=== PATIENT | male | born 1965 | race Caucasian/White ===

== ENCOUNTER 2016-12-04 14:47 | Emergency (ER) | payer OTHER ==
[~2016-12-04] VITALS: Ht 175.3 cm; Wt 90.5 kg
[~2016-12-04 14:47] MED LIST: ALBU1AER9 INH; HYDR-4313 PO; LITH600C PO; LTHSR/300 PO; MIRT30TA3 PO; OMEP40CA41 PO; POTA1080 PO; TRAZ300T PO
[2016-12-04 14:50] VITALS: TEMP 36.7; Ht 175.3 cm; Wt 90.5 kg
[2016-12-04] MEDS ORDERED: SODIUM CHLORIDE 0.9% 500ML 500 ML IV STA (15:02)
[2016-12-04] MEDS ORDERED: SODIUM CHLORIDE 0.9% 1000ML 1,000 ML IV STA (15:02)
[2016-12-04] MEDS ORDERED: SODIUM CHLORIDE 0.9% 1000ML 500 ML IV STA (15:02)
[2016-12-04 15:19] VITALS: O2SAT 96
--- NOTE | 2016-12-04 15:26 | EMERGENCY ROOM VISIT NOTE ---
History Report prepared by Priscilla: Robby Gonzalez Under the Supervision of: Dr. Jeyson Dowell M.D. First contact with patient: 15:00 Chief Complaint: SHORTNESS OF BREATH Stated Complaint: LIGHT HEADED, CHEST PAIN, SOB Nursing Triage Summary: Pt states last night at midnight and felt like someone stabbed me in the chest and I got dizzy spells and short of breath and I almost passed out. Told the nurse this am at the alf and did an EKG then. Pt states when he sat up he got pale and lightheaded. Pt denies chest pain at this time, numbness in left arm. History of Present Illness The patient is a 51 year old male who presents to the Emergency Room with complaints of left chest pain starting around midnight last night. The patient stood up when he had a sudden onset of sharp, stabbing pain in the left chest. He also had shakiness and lightheadedness. The patient laid down in a position and either passed out or fell asleep. This morning, he had a normal EKG. About an hour ago, he had another normal EKG but had an onset of severe headache, and lightheadedness. He became pale. He was referred to the Emergency Room for concerns about a stroke. He currently reports an aching pain in his left chest which radiates to the left shoulder. He has worsening pain with deep breathing and lifting his left arm. He also complains of left arm numbness starting around midnight last night. He has been coughing up mucous over the past few days. The patient notes a reduced fluid intake. He denies any history of myocardial infarction, blood clots, or recent surgeries. He denies fevers, congestion, or any other complaints. Source of History: patient Onset: midnight last night Position: chest (left) Symptom Intensity: achiness currently Quality: sharp, stabbing Modifying Factors (Worsening): breathing (deep) Associated Symptoms: + headache, + cough, + numbness (left arm), No fevers Review of Systems See HPI for pertinent positives & negatives. A total of 10 systems reviewed and were otherwise negative. Past Medical & Surgical Medical Problems: (1) Cellulitis (2) Corneal abrasion, left (3) Kidney stone Surgical Problems: (1) Hx of appendectomy Family History FH: HTN (hypertension) FH: SC (myocardial infarction) FH: cancer FH: diabetes mellitus FH: gallbladder disease Kidney stone Social History Smoking Status: Former Smoker Alcohol Use: none Drug Use: none Marital Status: Housing Status: other ([facility]) Occupation Status: unemployed, disabled Current/Historical Medications Scheduled [place] Carbonate ([place] Carbonate), 300 MG PO QAM [place] Carbonate ([place] Carbonate), 600 MG PO HS Mirtazapine (Remeron), 60 MG PO HS Risperidone (Risperidone), 1 MG PO BID Scheduled PRN Calcium Carbonate (Tums), 1 TAB PO BID PRN for Indigestion Hydrocortisone (Hydrocortisone), 1 APPLN TOP BID PRN for Affected Skin Folds Allergies Coded Allergies: Rofecoxib (Verified Adverse Reaction, Unknown, upset stomach, 12/04/16) Physical Exam Vital Signs Date Time Temp Pulse Resp B/P (MAP) Pulse Ox O2 Delivery O2 Flow Rate FiO2 12/04/16 18:41 88 20 145/93 98 12/04/16 17:48 81 16 161/91 98 Room Air 12/04/16 16:23 89 16 150/95 98 Room Air 12/04/16 16:02 144/115 12/04/16 15:29 75 149/84 94 Room Air 88 162/85 92 144/84 12/04/16 15:27 96 12/04/16 15:19 96 Room Air 12/04/16 14:50 96 12/04/16 14:50 36.7 98 16 171/78 97 Physical Exam GENERAL: Patient is in no acute distress. HEENT: No acute trauma, normocephalic atraumatic, mucous membranes moist, no nasal congestion, no scleral icterus. NECK: No stridor, no adenopathy, no meningismus, trachea is midline. CHEST: Tender left chest wall. LUNGS: Clear to auscultation bilaterally, no wheeze, no rhonchi, breath sounds equal. HEART: 2/6 systolic murmur, regular rate and rhythm. ABDOMEN: Soft, nontender, bowel sounds positive, no hernias, no peritonitis. EXTREMITIES: No cyanosis or edema, full range of motion of all the joints without pain or difficulty, no signs for acute trauma. NEUROLOGIC: Oriented x 3, no acute motor or sensory deficits, no focal weakness. No cerebellar dysfunction or pronator drift. No facial droop or speech slur. SKIN: No rash, no jaundice, no diaphoresis. Medical Decision & Procedures ER Provider Diagnostic Interpretation: Orthostatic vital signs showed increased heart rate consistent with dehydration , blood pressure remained adequate. X-ray results as stated below per interpretation by me and the radiologist: HISTORY:51 yearsMaleCHEST PAIN COMPARISON: 05/10/2014 TECHNIQUE: Upright AP view of the chest FINDINGS: Teresa mediastinal and hilar silhouettes are within normal limits. No pneumothorax, pleural effusion or focal airspace consolidation. No overt pulmonary edema. Bones are grossly intact. IMPRESSION: No acute cardiopulmonary process. The above report was generated using voice recognition software. It may contain grammatical, syntax or spelling errors. Electronically signed by: Keyon Mcdonnell M.D. 12/04/2016 3:40 PM Dictated Date/Time: 12/04/2016 3:[address] results as stated below per my review and radiologist interpretation: HEAD WITHOUT CONTRAST (CT) CLINICAL HISTORY: 51 years-old Male presenting with left arm numb. TECHNIQUE: Multidetector CT imaging of the head was performed without the use of intravenous contrast. COMPARISON: CT from 2008. CT DOSE: 537.48 mGy.cm FINDINGS: Brain parenchyma normal in appearance with preserved graves-white differentiation. Ventricular system and sulci normal in size. No mass effect or midline shift. No hemorrhage or acute territorial infarct. No hydrocephalus. No extra-axial fluid collection. Minimal opacification of ethmoid air cells. Slight concavity of the right frontal sinus likely posttraumatic. Mastoid air cells clear. Calvarium intact. IMPRESSION: No acute intracranial pathology. Electronically signed by: Horace Stewart M.D. 12/04/2016 4:48 PM Dictated Date/Time: 12/04/2016 4:[address] ANGIOGRAPHY OF THE CHEST, PULMONARY EMBOLUS PROTOCOL CLINICAL HISTORY: Lightheaded, chest pain and shortness of breath. COMPARISON STUDY: Chest radiograph May 10, 2014 and December 04, 2016. TECHNIQUE: Following IV administration of 94 mL of Optiray-320, helical axial images of the chest were obtained utilizing the pulmonary embolus protocol. Maximal intensity projections and sagittal and coronal reformats were viewed on an independent 3D workstation. IV contrast was administered without complication. CT DOSE: 425.84 mGy.cm FINDINGS: No pulmonary emboli are identified. There is no evidence of thoracic aortic dissection. The size of the heart is normal. There is no pericardial effusion. There is a probable small hiatal hernia. No enlarged axillary, mediastinal or hilar lymph nodes are present. Central airways are patent. There is no consolidation to suggest pneumonia. Multiple small subpleural nodules within the lower lungs are unchanged since abdominal CT of January 03, 2009. The remainder of the subpleural pulmonary nodules are likely benign as well. There is fatty infiltration of the liver. IMPRESSION: 1. No probably emboli identified. 2. No acute intrathoracic findings. 3. Fatty liver. Electronically signed by: Keith Nelson M.D. 12/04/2016 6:11 PM Dictated Date/Time: 12/04/2016 6:02 PM Laboratory Results 12/04/16 15:22 12/04/16 15:22 Test 12/04/16 15:22 Red Blood Count 5.14 M/uL (4.7-6.1) Mean Corpuscular Volume 86.2 fL (80-100) Mean Corpuscular Hemoglobin 29.4 pg (25-34) Mean Corpuscular Hemoglobin Concent 34.1 g/dl (32-36) RDW Standard Deviation 39.0 fL (36.4-46.3) RDW Coefficient of Variation 12.2 % (11.5-14.5) Mean Platelet Volume 9.8 fL (7.4-10.4) Prothrombin Time 10.5 SECONDS (9.0-12.0) Prothromb Time International Ratio 1.0 (0.9-1.1) Activated Partial Thromboplast Time 26.6 SECONDS (21.0-31.0) Partial Thromboplastin Ratio 1.0 D-Dimer 530 ug/L FEU (0-500) Anion Gap 9.0 mmol/L (3-11) Est Creatinine Clear Calc Drug Dose 81.9 ml/min Estimated GFR () 81.2 Estimated GFR (Non- 70.1 BUN/Creatinine Ratio 11.3 (10-20) Calcium Level 9.1 mg/dl (8.5-10.1) Total Bilirubin 0.6 mg/dl (0.2-1) Aspartate Amino Transf (AST/SGOT) 29 U/L (15-37) Alanine Aminotransferase (ALT/SGPT) 60 U/L (12-78) Alkaline Phosphatase 71 U/L (45-117) Troponin I < 0.015 ng/ml (0-0.045) Total Protein 7.2 gm/dl (6.4-8.2) Albumin 4.0 gm/dl (3.4-5.0) Globulin 3.2 gm/dl (2.5-4.0) Albumin/Globulin Ratio 1.3 (0.9-2) [place] Level 0.7 mMOL/L (0.6-1.2) Laboratory results reviewed by me. Medications Administered Medications (Trade) Dose Ordered Sig/Dimitris Route Start Time Stop Time Status Last Admin Dose Admin Sodium Chloride 500 ml @ 999 mls/hr Q31M STAT IV 12/04/16 15:02 12/04/16 15:32 DC 12/04/16 15:32 999 MLS/HR Sodium Chloride 500 ml @ 999 mls/hr Q31M STAT IV 12/04/16 15:02 12/04/16 15:32 DC 12/04/16 15:32 999 MLS/HR Sodium Chloride 1,000 ml @ 200 mls/hr Q5H STAT IV 12/04/16 15:02 12/04/16 20:01 12/04/16 15:02 200 MLS/HR ECG Indication: chest pain Rate (beats per minute): 88 Rhythm: normal sinus Findings: no acute ischemic change, no ectopy ED Course 1500: The patient was evaluated in room B02. A complete history and physical exam was performed. 1502: Sodium Chloride 1000 ml @ 200 mls/hr IV, Sodium Chloride 500 ml @ 999 mls/ hr IV, Sodium Chloride 500 ml @ 999 mls/hr IV 1817: I updated the patient. .1825: Reevaluated the patient. Discussed results and discharge instructions: He verbalized understanding and agreement. The patient is ready for discharge. Medical Decision Differential diagnosis includes but is not limited to musculoskeletal pain, dehydration, PE, aortic dissection, SC, stroke, nerve impingement, anemia, infection. There is no leukocytosis or concerning anemia. No significant electrolyte abnormality, kidney failure or hepatitis. [place] level is not toxic. Brain CT shows no acute bleed or mass effect. On exam, there were no focal neurologic deficits. EKG shows a sinus rhythm, no acute ischemia. Cardiac enzyme testing 1 is not consistent with acute cardiac injury. Chest x-ray did not show pneumonia, mediastinal widening or pneumothorax. D-dimer testing was positive. Chest CT shows no PE, no evidence for aortic dissection. Orthostatic vital signs were positive in that his heart rate increased with standing. The patient received IV saline for dehydration. He has done well here in the emergency room. He is not toxic, he is not febrile. I think the chest pain is musculoskeletal. The near syncope or lightheadedness earlier was likely secondary to dehydration. I find no evidence for PE, for stroke or for SC. The patient was reassured and discharged [facility] to the [facility]. Impression Primary Impression: Left sided chest pain Additional Impression: Dehydration Scribe Attestation The scribe's documentation has been prepared under my direction and personally reviewed by me in its entirety. I confirm that the note above accurately reflects all work, treatment, procedures, and medical decision making performed by me. Departure Information Dispostion Home / Self-Care Referrals No Doctor, Assigned (PCP) Forms HOME CARE DOCUMENTATION FORM, IMPORTANT VISIT INFORMATION Patient Instructions My [facility] Additional Instructions heat to the chest wall may help motrin or tylenol for pain stay well hydrated--you were slightly dehydrated today no findings of stroke, heart attack or lung blood clot today. No findings of pneumonia return for worsening symptoms Problem Qualifiers
--- NOTE | 2016-12-04 15:41 | DIAGNOSTIC IMAGING REPORT ---
... HISTORY:51 yearsMaleCHEST PAIN COMPARISON: 05/10/2014 TECHNIQUE: Upright AP view of the chest FINDINGS: Teresa mediastinal and hilar silhouettes are within normal limits. No pneumothorax, pleural effusion or focal airspace consolidation. No overt pulmonary edema. Bones are grossly intact. IMPRESSION: No acute cardiopulmonary process. The above report was generated using voice recognition software. It may contain grammatical, syntax or spelling errors. Electronically signed by: Keyon Mcdonnell M.D. 12/04/2016 3:40 PM Dictated Date/Time: 12/04/2016 3:39 PM
[2016-12-04 15:51] LABS: HEMATOCRIT 44.3 % (42-52); MEAN CELL VOLUME 86.2 fL (80-100); MEAN CORPUSCULAR HEMOGLOBIN 29.4 pg (25-34); MEAN CORPUSCULAR HGB CONC 34.1 g/dl (32-36); MEAN PLATELET VOLUME 9.8 fL (7.4-10.4); PLATELET COUNT 233 K/uL (130-400); RED BLOOD COUNT 5.14 M/uL (4.7-6.1); WHITE BLOOD COUNT 8.51 K/uL (4.8-10.8)
[2016-12-04] MEDS ORDERED: CALC500C3 PO (16:05)
[2016-12-04] MEDS ORDERED: RSP1 PO (16:05)
[2016-12-04] MEDS ORDERED: HYDCR25 TOP (16:05)
[2016-12-04 16:12] LABS: BLOOD UREA NITROGEN 14 mg/dl (7-18); GLUCOSE 105 mg/dl (70-99)
[2016-12-04 16:13] LABS: ALT/SGPT 60 U/L (12-78); AST/SGOT 29 U/L (15-37); BUN/CREATININE RATIO 11.3 (10-20); CALCIUM 9.1 mg/dl (8.5-10.1); CARBON DIOXIDE 24 mmol/L (21-32); CHLORIDE 108 mmol/L (98-107); POTASSIUM 3.7 mmol/L (3.5-5.1); SODIUM 141 mmol/L (136-145)
[2016-12-04 16:17] LABS: ALB/GLOB RATIO 1.3 (0.9-2); ALKALINE PHOSPHATASE 71 U/L (45-117)
[2016-12-04 16:27] LABS: PROTHROMBIN TIME (PATIENT) 10.5 SECONDS (9.0-12.0)
--- NOTE | 2016-12-04 16:50 | DIAGNOSTIC IMAGING REPORT ---
HEAD WITHOUT CONTRAST (CT) CLINICAL HISTORY: 51 years-old Male presenting with left arm numb. TECHNIQUE: Multidetector CT imaging of the head was performed without the use of intravenous contrast. COMPARISON: CT from 2009. CT DOSE: 537.48 mGy.cm FINDINGS: Brain parenchyma normal in appearance with preserved graves-white differentiation. Ventricular system and sulci normal in size. No mass effect or midline shift. No hemorrhage or acute territorial infarct. No hydrocephalus. No extra-axial fluid collection. Minimal opacification of ethmoid air cells. Slight concavity of the right frontal sinus likely posttraumatic. Mastoid air cells clear. Calvarium intact. IMPRESSION: No acute intracranial pathology. Electronically signed by: Horace Stewart M.D. 12/04/2016 4:48 PM Dictated Date/Time: 12/04/2016 4:45 PM
[2016-12-04] MEDS ORDERED: OPTIRAY 320 IV PRN (17:30)
--- NOTE | 2016-12-04 18:13 | DIAGNOSTIC IMAGING REPORT ---
CT ANGIOGRAPHY OF THE CHEST, PULMONARY EMBOLUS PROTOCOL CLINICAL HISTORY: Lightheaded, chest pain and shortness of breath. COMPARISON STUDY: Chest radiograph May 10, 2014 and December 04, 2016. TECHNIQUE: Following IV administration of 94 mL of Optiray-320, helical axial images of the chest were obtained utilizing the pulmonary embolus protocol. Maximal intensity projections and sagittal and coronal reformats were viewed on an independent 3D workstation. IV contrast was administered without complication. CT DOSE: 425.84 mGy.cm FINDINGS: No pulmonary emboli are identified. There is no evidence of thoracic aortic dissection. The size of the heart is normal. There is no pericardial effusion. There is a probable small hiatal hernia. No enlarged axillary, mediastinal or hilar lymph nodes are present. Central airways are patent. There is no consolidation to suggest pneumonia. Multiple small subpleural nodules within the lower lungs are unchanged since abdominal CT of January 03, 2009. The remainder of the subpleural pulmonary nodules are likely benign as well. There is fatty infiltration of the liver. IMPRESSION: 1. No probably emboli identified. 2. No acute intrathoracic findings. 3. Fatty liver. Electronically signed by: Keith Nelson M.D. 12/04/2016 6:11 PM Dictated Date/Time: 12/04/2016 6:02 PM
[2016-12-04 18:41] VITALS: BP 145/93; PULSE 88; O2SAT 98
== END 2016-12-04 18:42 | disposition home or self-care (01) ==
LOC: C.EDB 14:49
DX: R07.9 Chest pain, unspecified (principal); E86.0 Dehydration; Z87.442 Personal history of urinary calculi; Z82.49 Family history of ischemic heart disease and other diseases of the circulatory system; Z80.9 Family history of malignant neoplasm, unspecified; Z83.3 Family history of diabetes mellitus; Z83.79 Family history of other diseases of the digestive system; Z84.1 Family history of disorders of kidney and ureter; Z87.891 Personal history of nicotine dependence; Z79.899 Other long term (current) drug therapy

== ENCOUNTER 2020-01-22 19:01 | Observation (INO) ==
[2020-01-22] MEDS ORDERED: ONDANSETRON INJ 2 MG/ML 2 ML VIAL IV STA (19:24)
[2020-01-22] MEDS ORDERED: MoRPHine SULFATE 4 MG/ML 1 ML CARP\\VIAL IV STA (19:24)
--- NOTE | 2020-01-22 19:33 | Emergency Department Note ---
History of Present Illness General Chief complaint: Chest Pain Stated complaint: chest pain/ [facility] Time Seen by Provider: 01/22/20 19:11 Source: patient History of Present Illness Provider complaint: Chest pain Onset (ago): hour(s) (Noon today) Location: chest and left Radiation: abdomen (Left upper abdomen at times) Severity: moderate Pain Consistency: + constant Quality: + sharp and + other (Someone sitting on his chest) Relieved By: + medication (2 sublingual nitroglycerin) Associated symptoms: + diaphoresis and + shortness of breath; no cough, no fever/chills, no headaches and no nausea/vomiting This is a 54-year-old male from [facility] who presents with chest pain starting at noon today. He states he got out of bed and developed left-sided chest pain which occasionally radiates into his left upper abdomen. He describes it as a sharp pain and also as if someone is sitting on his chest. He was given 2 sublingual nitroglycerin and aspirin prior to arrival and he states that this helped but did not resolve his pain. It is associated with shortness of breath and sweating. He does complain of abdominal distention and discomfort but states that this is a chronic problem for him and that his symptoms are not new. He did have some diarrhea but denies any vomiting. He denies any fever or cough or cold symptoms or known exposure to COVID-19. He denies any history of coronary artery disease. He does state that his family members have had heart attacks at a late age. He denies any history of PE or DVT and denies any recent immobilization. He denies any leg swelling or pain. Home Medications Home Medications Medication Instructions Recorded Confirmed Type lithium carbonate 300 mg PO DAILY 01/22/20 01/22/20 History lithium carbonate 600 mg PO HS 01/22/20 01/22/20 History mirtazapine 30 mg PO HS 01/22/20 01/22/20 History omeprazole 20 mg PO BID 01/22/20 01/22/20 History risperidone [Risperdal] 2 mg PO HS 01/22/20 01/22/20 History Allergies Allergy/AdvReac Type Severity Reaction Status Date / Time rofecoxib AdvReac Unknown upset Verified 12/04/16 16:00 stomach Past Med/Surg History Medical History (Updated 01/22/20 @ 21:39 by Dorothea Gómez DO) Bipolar 1 disorder Depression History of small bowel obstruction Surgical History (Updated 01/22/20 @ 21:27 by Dorothea Gómez DO) Hx of appendectomy Family History (Updated 01/22/20 @ 21:28 by Dorothea Gómez DO) Other Diabetes Heart disease Social History (Updated 01/22/20 @ 21:28 by Dorothea Gómez DO) Smoking Status: Never smoker Hx Alcohol Use: No Hx Substance Use: No Preferred Language: Mongolian Communication Ability: Effective Office Administrator Required: No Beliefs That Will Affect Care: None Current Living Situation: Other Current Living Situation Comment: Assisted current occupation: Incarcerated Feels Safe at Home: Yes Review of Systems See HPI for pertinent positives & negatives. and A total of 10 systems reviewed and were otherwise negative Physical Exam Vital Signs Vital Signs - 24 hr 01/22/20 19:17 01/22/20 19:30 01/22/20 20:00 Temperature 37.8 C H Temperature Source Oral Pulse Rate 105 H 101 H Pulse Rate from SpO2 Sensor 106 H 101 H Pulse Rhythm Regular Pulse Strength Normal Respiratory Rate 18 24 23 Respiratory Effort / Characteristics Non-Labored Spontaneous Respiratory Depth Normal Respiratory Pattern Regular Blood Pressure 142/78 H 140/81 134/71 Blood Pressure Mean 99 91 84 Blood Pressure Position Lying Pulse Oximetry 99 95 96 Oxygen Delivery Method Room Air Room Air Room Air Sepsis Recent Fever Within 48 Hours No Sepsis New/Unexplained Change in Mental Status No Sepsis Action Taken by Nursing No Action Required 01/22/20 20:29 01/22/20 21:00 Temperature Temperature Source Pulse Rate 104 H 102 H Pulse Rate from SpO2 Sensor 106 H 100 H Pulse Rhythm Pulse Strength Respiratory Rate 22 17 Respiratory Effort / Characteristics Respiratory Depth Respiratory Pattern Blood Pressure 140/85 156/101 H Blood Pressure Mean 101 117 Blood Pressure Position Pulse Oximetry 97 96 Oxygen Delivery Method Room Air Room Air Sepsis Recent Fever Within 48 Hours Sepsis New/Unexplained Change in Mental Status Sepsis Action Taken by Nursing Constitutional: Vital signs reviewed. Eyes: Pupils are equal round reactive to light. Conjunctiva are noninjected. ENT: Pharynx is clear without erythema or exudate. Mucous membranes are moist. Neck supple without meningeal signs. Respiratory: Clear to auscultation bilaterally. Breath sounds are equal bilaterally. Cardiovascular: Tachycardic. Heart rate 112. No rubs or gallops. GI: Diffusely distended abdomen without tenderness. Bowel sounds are present. Musculoskeletal: No peripheral edema. No lower extremity tenderness. Integumentary: No cyanosis. or jaundice. Neurological: The patient is awake and alert. No focal deficits. Psychiatric: Normal affect. Not anxious appearing. Course Administered Medications Heparin Sodium/Dextrose (Heparin Sodium/Dextrose) 25,000 units in 500 mls @ 28 mls/hr IV .[id number] [facility]; Protocol Stop: 02/21/20 21:59 Last Admin: 01/22/20 22:54 Dose: 1,400 units/hr, 28 mls/hr Documented by: [id number] Cosigned by: [id number] Tramadol HCl (Tramadol Hcl 50 Mg Tablet) 50 mg PO Q4H PRN PRN Reason: Pain Stop: 02/21/20 21:59 Last Admin: 01/22/20 22:52 Dose: 50 mg Documented by: [id number] Discontinued Medications Heparin Sodium/Dextrose (Heparin Iv Standard With Bolus) 1 ea IV NOW STA; Protocol Stop: 01/22/20 22:01 Last Admin: 01/22/20 22:55 Dose: 1 ea Documented by: [id number] Heparin Sodium (Porcine) 6,000 (units/ Syringe) 6 mls @ 10 mls/min IV NOW ONE Stop: 01/22/20 22:46 Last Admin: 01/22/20 22:54 Dose: 10 mls/min Documented by: [id number] Cosigned by: [id number] Ioversol (Optiray 320 125ml) 94 ml IV ONCE ONE Stop: 01/22/20 20:26 Last Admin: 01/22/20 20:25 Dose: 94 ml Documented by: [id number] Morphine Sulfate (Morphine Sulfate 4 Mg/Ml 1 Ml Carp\Vial) 4 mg IV NOW STA Stop: 01/22/20 19:25 Last Admin: 01/22/20 19:46 Dose: 4 mg Documented by: [id number] Ondansetron HCl (Ondansetron Inj 2 Mg/Ml 2 Ml Vial) 4 mg IV NOW STA Stop: 01/22/20 19:25 Last Admin: 01/22/20 19:46 Dose: 4 mg Documented by: [id number] Critical Care Time Critical Care Time: Yes Total Critical Care Time: 40 I have personally spent approximately 40 minutes of critical care time in the direct management of this patient. This includes bedside care, interpretation of diagnostic studies, and testing, discussion with consultants, patient, and family members, and other required patient management activities. These minutes are in excess of all separately billable procedures. Medical Decision Making Differential Diagnosis Unstable angina, PA, GERD, bowel obstruction, gastritis, pulmonary embolism Medical Records Attestation: I reviewed the patient's medical records. I did perform a limited focused review of portions of the patient's old chart on the electronic medical record. The patient has had no recent pertinent visits to this hospital. Home Medications Current Medication List: was personally reviewed by me Laboratory Data Attestation: I reviewed the patient's lab results. Result diagrams: 01/22/20 19:10 01/22/20 19:10 Lab Results 01/22/20 01/22/20 01/22/20 Range/Units 19:10 19:10 19:10 WBC 12.00 H (4.8-10.8) K/uL RBC 5.06 (4.7-6.1) M/uL Hgb 15.2 (14.0-18.0) g/dL Hct 45.6 (42-52) % MCV 90.1 (80-100) fL MCH 30.0 (25-34) pg MCHC 33.3 (32-36) g/dL RDW Std Deviation 41.4 (36.4-46.3) fL RDW Coeff of James 12.6 (11.5-14.5) % Plt Count 245 (130-400) K/uL MPV 10.6 H (7.4-10.4) fL Immature Gran % (Auto) 0.2 % Neut % (Auto) 69.5 % Lymph % (Auto) 17.1 % Sargent % (Auto) 11.3 % Eos % (Auto) 1.6 % Baso % (Auto) 0.3 % Neut # (Auto) 8.36 H (1.4-6.5) K/uL Lymph # (Auto) 2.05 (1.2-3.4) K/uL Sargent # (Auto) 1.35 H (0.11-0.59) K/uL Eos # (Auto) 0.19 (0-0.5) K/uL Baso # (Auto) 0.03 (0-0.2) K/uL Immature Gran # (Auto) 0.02 (0.00-0.02) K/uL PT (9.0-12.0) Seconds INR (0.9-1.1) APTT (21.0-31.0) Seconds PTT Ratio D-Dimer Cancelled Sodium 137 (136-145) mmol/L Potassium 4.0 (3.5-5.1) mmol/L Chloride 108 H (98-107) mmol/L Carbon Dioxide 22 (21-32) mmol/L Anion Gap 8.0 (3-11) BUN 13 (7-18) mg/dl Creatinine 1.30 (0.6-1.4) mg/dl Est Cr Clr Drug Dosing 76.0 ml/min Est GFR ( Amer) 72.2 Est GFR (Non-Af Amer) 62.3 BUN/Creatinine Ratio 9.7 L (10-20) Glucose 108 H (70-99) mg/dl Calcium 8.9 (8.5-10.1) mg/dl Total Bilirubin 0.8 (0.2-1) mg/dl AST 28 (15-37) U/L ALT 50 (12-78) U/L Alkaline Phosphatase 84 (45-117) U/L Troponin I < 0.015 (0-0.045) ng/ml Total Protein 8.1 (6.4-8.2) gm/dl Albumin 4.2 (3.4-5.0) gm/dl Globulin 3.9 (2.5-4.0) gm/dl Albumin/Globulin Ratio 1.1 (0.9-2) Lipase 94 (73-393) U/L 01/22/20 Range/Units 19:10 WBC (4.8-10.8) K/uL RBC (4.7-6.1) M/uL Hgb (14.0-18.0) g/dL Hct (42-52) % MCV (80-100) fL MCH (25-34) pg MCHC (32-36) g/dL RDW Std Deviation (36.4-46.3) fL RDW Coeff of James (11.5-14.5) % Plt Count (130-400) K/uL MPV (7.4-10.4) fL Immature Gran % (Auto) % Neut % (Auto) % Lymph % (Auto) % Sargent % (Auto) % Eos % (Auto) % Baso % (Auto) % Neut # (Auto) (1.4-6.5) K/uL Lymph # (Auto) (1.2-3.4) K/uL Sargent # (Auto) (0.11-0.59) K/uL Eos # (Auto) (0-0.5) K/uL Baso # (Auto) (0-0.2) K/uL Immature Gran # (Auto) (0.00-0.02) K/uL PT 10.7 (9.0-12.0) Seconds INR 1.0 (0.9-1.1) APTT 26.0 (21.0-31.0) Seconds PTT Ratio 0.9 D-Dimer 1130 H* Sodium (136-145) mmol/L Potassium (3.5-5.1) mmol/L Chloride (98-107) mmol/L Carbon Dioxide (21-32) mmol/L Anion Gap (3-11) BUN (7-18) mg/dl Creatinine (0.6-1.4) mg/dl Est Cr Clr Drug Dosing ml/min Est GFR ( Amer) Est GFR (Non-Af Amer) BUN/Creatinine Ratio (10-20) Glucose (70-99) mg/dl Calcium (8.5-10.1) mg/dl Total Bilirubin (0.2-1) mg/dl AST (15-37) U/L ALT (12-78) U/L Alkaline Phosphatase (45-117) U/L Troponin I (0-0.045) ng/ml Total Protein (6.4-8.2) gm/dl Albumin (3.4-5.0) gm/dl Globulin (2.5-4.0) gm/dl Albumin/Globulin Ratio (0.9-2) Lipase (73-393) U/L Imaging Data Radiologist's Impression: AP CHEST WITH ABDOMINAL SERIES CLINICAL HISTORY: Abdominal distention. FINDINGS: An AP upright chest radiograph is compared to chest x-ray and chest CT dated 12/04/2016. The examination is degraded by patient rotation. The cardiomediastinal silhouette is unremarkable. There are low lung volumes with bibasilar atelectasis. Chronic interstitial thickening is similar to previous. No airspace consolidation or pleural effusion is identified. No pneumothorax is seen. The bony thorax is grossly intact. Supine and erect abdominal radiographs are compared to study dated 10/04/2011 and correlated with abdominal CT dated 04/13/2011. There is a nonobstructed abdominal bowel gas pattern. Fecal retention is noted in the right colon. No evidence of intraperitoneal free air is seen. There are no abnormal abdominal calcifications. Small phleboliths are observed in the pelvis. The lumbosacral spine and bony pelvis appear intact. IMPRESSION: 1. No active disease in the chest. 2. Nonobstructed abdominal bowel gas pattern. ACT 112: Negative or not required by law. Electronically signed by: Jeyson Hammer M.D. 01/22/2020 7:[address] ANGIOGRAM OF THE CHEST CLINICAL HISTORY: Atypical left-sided chest pain. COMPARISON STUDY: Chest x-ray dated 01/22/2020. Chest CT dated 12/04/2016. TECHNIQUE: Following the IV administration of 94 cc of Optiray 320, CT angiogram of the chest was performed from the upper abdomen to the thoracic inlet utilizing the pulmonary embolus protocol. Images are reviewed in the axial, sagittal, and coronal planes. 3-D MIPS images are created and assessed. IV contrast was administered without complication. A dose lowering technique was utilized adhering to the principles of ALARA. The examination is degraded by suboptimal contrast opacification of the pulmonary arteries CT DOSE: 507.02 mGy.cm FINDINGS: Thyroid: Imaged portions of the thyroid gland are normal in size and attenuation. Thoracic aorta: The thoracic aorta is normal in caliber and demonstrates standar d 3-vessel arch anatomy. No dissection is seen. Pulmonary vasculature: The pulmonary trunk is normal in caliber. There are no filling defects identified in main, lobar, or segmental pulmonary branches to suggest pulmonary embolus. A filling defect is suggested within a subsegmental branch of the left lower lobe pulmonary artery on image #92. Heart: The heart is normal in size and without pericardial effusion. Lungs and pleural spaces: Evaluation of the lung parenchyma is degraded by motion artifact. There is trace left pleural effusion. There is a small focus of subpleural consolidation identified in the anterior left lower lobe on image #76. The trachea and central airways are clear. A 3 mm pulmonary nodule in the lingula seen on image #108. There are least 3 small pulmonary pleural-based nodules in the right middle lobe measuring up to 3 mm seen on image #81, #84, and #105. These are unchanged dating back to 2017 and of doubtful significance. Scattered calcified granulomas are observed. Mediastinum: There is no mediastinal lymphadenopathy. Peace: Clear. Axillae: There is no axillary lymphadenopathy. Upper abdomen: There is a small hiatal hernia. The liver is steatotic. Skeletal structures: No lytic or blastic bony lesions are seen. IMPRESSION: 1. The examination is degraded by suboptimal contrast opacification of the pulmonary arteries. 2. There is no evidence of central pulmonary embolus within the main, lobar, or proximal segmental pulmonary arteries. 3. A subsegmental pulmonary embolus is suspected within a branch of the left lower lobe pulmonary artery. This leads to a small focus of subpleural consolidation which likely represents a tiny pulmonary infarct. 4. There is trace left pleural effusion. 5. Hepatic steatosis. 6. Additional findings as above. ACT 112: Negative or not required by law. Electronically signed by: Jeyson Hammer M.D. 01/22/2020 8:39 PM Dictated: 01/22/202027 Transcribed: 01/22/202027 ECG Data Attestation: I personally reviewed and interpreted this ECG as follows: Indication: + chest pain Rate (beats per minute): 122 Rhythm: + sinus tachycardia ECG Intervals/blocks: + Normal QRS ECG ST segments: no ST elevation ECG Findings: no PVCs Blood Pressure Blood Pressure Findings: Elevated blood pressure Blood Pressure Disposition: Referred to patients primary care provider [facility] Narrative I did evaluate the patient as noted above. The patient is presenting with chest pain. He is quite tachycardic here. He also has a low-grade temperature. I was concerned about pulmonary embolism. I did treat him with IV morphine and Zofran. I did place an order for continuous cardiac monitoring. The monitor showed sinus tachycardia with a rate of 112. I did order and personally review the patient's 12-lead EKG as described above. He has sinus tachycardia without evidence of acute ischemia. I did order and personally reviewed the images of the patient's chest/abdominal x-ray as described above. There is no evidence of obstruction or pneumonia. I did order and review the patient's blood work as noted in the electronic medical record. His white blood cell count is elevated. His d-dimer is 1130. Troponin is negative. After discussion with the patient, I did order a CT angiogram of the chest. I did review the images myself as well as the radiology report as described above. He does have a left- sided pulmonary embolism with a small pulmonary infarct. I did discuss risks and benefits of blood thinners with patient. He was agreeable to treatment. His tachycardia did improve. I did discuss case with the hospitalist and watch caser. I did order a heparin IV drip with bolus. Impression & Plan Embolism, pulmonary with infarction Discharge Plan Visit Data Chief Complaint: Chest Pain Stated Complaint: chest pain/ [facility] ED Provider: Karri Roberts Discharge Problem: Embolism, pulmonary with infarction Patient Disposition: Admitted As Inpatient Discharge Instructions Interventions: ED Discharge Assessment Last Done: 01/22/20 21:32
[2020-01-22 19:44] LABS: Basophils # (auto) 0.03 K/uL (0-0.2); Basophils % (auto) 0.3 %; Eosinophils # (auto) 0.19 K/uL (0-0.5); Eosinophils % (auto) 1.6 %; Hematocrit (blood only) 45.6 % (42-52); Hemoglobin 15.2 g/dL (14.0-18.0); Immature Granulocytes # (auto) 0.02 K/uL (0.00-0.02); Immature Granulocytes % (auto) 0.2 %; Lymphocytes # (auto) 2.05 K/uL (1.2-3.4); Lymphocytes % (auto) 17.1 %; Mean Corpuscular Hgb Conc 33.3 g/dL (32-36); Mean Corpuscular Volume 90.1 fL (80-100); Mean Platelet Volume 10.6 fL (7.4-10.4); Monocytes # (auto) 1.35 K/uL (0.11-0.59); Monocytes % (auto) 11.3 %; Neutrophils # (auto) 8.36 K/uL (1.4-6.5); Neutrophils % (auto) 69.5 %; Platelet Count 245 K/uL (130-400); RDW Coefficient of Variation 12.6 % (11.5-14.5); RDW Standard Deviation 41.4 fL (36.4-46.3); Red Blood Count 5.06 M/uL (4.7-6.1)
--- NOTE | 2020-01-22 19:50 | XRay Report ---
AP CHEST WITH ABDOMINAL SERIES CLINICAL HISTORY: Abdominal distention. FINDINGS: An AP upright chest radiograph is compared to chest x-ray and chest CT dated 12/04/2016. The examinati on is degraded by patient rotation. The cardiomediastinal silhouette is unremarkable. There are low l bailey volumes with bibasilar atelectasis. Chronic interstitial thickening is similar to previous. No ai rspace consolidation or pleural effusion is identified. No pneumothorax is seen. The bony thorax is g rossly intact. Supine and erect abdominal radiographs are compared to study dated 10/04/2011 and correlated with abdo patricia CT dated 04/13/2011. There is a nonobstructed abdominal bowel gas pattern. Fecal retention is n oted in the right colon. No evidence of intraperitoneal free air is seen. There are no abnormal abdom inal calcifications. Small phleboliths are observed in the pelvis. The lumbosacral spine and bony pel vis appear intact. IMPRESSION: 1. No active disease in the chest. 2. Nonobstructed abdominal bowel gas pattern. ACT 112: Negative or not required by law. Electronically signed by: Jeyson Hammer M.D. 01/22/2020 7:49 PM
[2020-01-22 19:55] LABS: Partial Thromboplastin Ratio 0.9; Prothrombin Time 10.7 Seconds (9.0-12.0)
[2020-01-22 20:03] LABS: Alanine Aminotransferase 50 U/L (12-78); Albumin Level 4.2 gm/dl (3.4-5.0); Aspartate Aminotransferase 28 U/L (15-37); BUN Creatinine Ratio 9.7 (10-20); Blood Urea Nitrogen 13 mg/dl (7-18); Calcium 8.9 mg/dl (8.5-10.1); Carbon Dioxide 22 mmol/L (21-32); Chloride 108 mmol/L (98-107); Est GFR (African American) 72.2; Est GFR (Non-African American) 62.3; Glucose 108 mg/dl (70-99); Lipase 94 U/L (73-393); Sodium 137 mmol/L (136-145)
[2020-01-22 20:04] LABS: D Dimer 1130 ug/L FEU (0-500)
[2020-01-22 20:08] LABS: Albumin Globulin Ratio 1.1 (0.9-2); Alkaline Phosphatase 84 U/L (45-117); Bilirubin,Total 0.8 mg/dl (0.2-1); Globulin 3.9 gm/dl (2.5-4.0); Total Protein 8.1 gm/dl (6.4-8.2); Troponin I < 0.015 ng/ml (0-0.045)
[2020-01-22] MEDS ORDERED: OPTIRAY 320 125ml IV ONE (20:25)
--- NOTE | 2020-01-22 20:40 | CT Scan Report ---
CT ANGIOGRAM OF THE CHEST CLINICAL HISTORY: Atypical left-sided chest pain. COMPARISON STUDY: Chest x-ray dated 01/22/2020. Chest CT dated 12/04/2016. TECHNIQUE: Following the IV administration of 94 cc of Optiray 320, CT angiogram of the chest was per formed from the upper abdomen to the thoracic inlet utilizing the pulmonary embolus protocol. Images are reviewed in the axial, sagittal, and coronal planes. 3-D MIPS images are created and assessed. IV contrast was administered without complication. A dose lowering technique was utilized adhering to the principles of ALARA. The examination is degraded by suboptimal contrast opacification of the pulm onary arteries CT DOSE: 507.02 mGy.cm FINDINGS: Thyroid: Imaged portions of the thyroid gland are normal in size and attenuation. Thoracic aorta: The thoracic aorta is normal in caliber and demonstrates standard 3-vessel arch anato my. No dissection is seen. Pulmonary vasculature: The pulmonary trunk is normal in caliber. There are no filling defects identif ied in main, lobar, or segmental pulmonary branches to suggest pulmonary embolus. A filling defect is suggested within a subsegmental branch of the left lower lobe pulmonary artery on image #92. Heart: The heart is normal in size and without pericardial effusion. Lungs and pleural spaces: Evaluation of the lung parenchyma is degraded by motion artifact. There is trace left pleural effusion. There is a small focus of subpleural consolidation identified in the ant erior left lower lobe on image #76. The trachea and central airways are clear. A 3 mm pulmonary nodul e in the lingula seen on image #108. There are least 3 small pulmonary pleural-based nodules in the r ight middle lobe measuring up to 3 mm seen on image #81, #84, and #105. These are unchanged dating ba to 2016 and of doubtful significance. Scattered calcified granulomas are observed. Mediastinum: There is no mediastinal lymphadenopathy. Peace: Clear. Axillae: There is no axillary lymphadenopathy. Upper abdomen: There is a small hiatal hernia. The liver is steatotic. Skeletal structures: No lytic or blastic bony lesions are seen. IMPRESSION: 1. The examination is degraded by suboptimal contrast opacification of the pulmonary arteries. 2. There is no evidence of central pulmonary embolus within the main, lobar, or proximal segmental pu lmonary arteries. 3. A subsegmental pulmonary embolus is suspected within a branch of the left lower lobe pulmonary art milton. This leads to a small focus of subpleural consolidation which likely represents a tiny pulmonary infarct. 4. There is trace left pleural effusion. 5. Hepatic steatosis. 6. Additional findings as above. ACT 112: Negative or not required by law. Electronically signed by: Jeyson Hammer M.D. 01/22/2020 8:39 PM
--- NOTE | 2020-01-22 21:41 | History & Physical Report ---
Date of Service January 22, 2020 Assessment & Plan (1) Embolism, pulmonary with infarction: 54yo C male with history of Bipolar/Depression presenting from [facility] with acute onset of left sided pleuritic chest pain. Found to have a subsegmental PE of left lower lobe pulmonary artery with associated small pulmonary infarct. No clear risk factors identified. Patient currently afebrile, regular tachycardia at 104bpm, blood pressure is stable. No respiratory distress, adequate oxygenation on room air. -Admit to medical floor with telemetry monitoring -Heparin bolus + gtt for anticoagulation -Initiate NOAC tomorrow - anticoagulation for at least 3 months in unprovoked PE -Patient should complete age appropriate cancer screenings to include colonoscopy -Tramadol as needed for pain Present on Admission?: Yes (2) Bipolar 1 disorder: Stable mood and affect. Normal speech. -Continue home medication regimen to include [place] 300mg po daily and 600mg po qHS -Remeron 30mg po qHS -Risperidone 2mg po qHS Present on Admission?: Yes (3) Depression: As above -Continue home Psychiatric medications Present on Admission?: Yes (4) Constipation: Patient reports some abdominal bloating and distention as well as constipation. He has history of prior abdominal surgery with SBO. Chest/Abd X- ray with nonobstructed abdominal bowel gas pattern. -Miralax and colace PRN F/E/N - Heplock. Electrolytes WNL. Regular diet as tolerated. Ppx - Heparin gtt as above. Continue home Omeprazole 20mg po BID Code - Full per discussion with patient Dispo - Observation to medical floor with telemetry. Anticipate discharge tomorrow Present on Admission?: Yes History of Present Illness Chief Complaint: left sided chest pain Primary Care Provider: [facility] Alvaro Brock is a 54yo male inmate from [facility] with history of Bipolar/D epression presenting with left sided chest pain. Patient states that he was getting ready for work this afternoon around 12:00 when he had acute onset of left sided chest pain. Pain stabbing and squeezing in nature, radiation down his left side and associated with sweating. Pain is pleuritic, non-exertional and non-positional. Patient with no complaint of leg swelling but he did have some mild discomfort in his legs earlier. No trauma/immobililty. No prior history of VTE but he thinks some of his family members have had blood clots in the past. He has never had a colonoscopy before. He is also complaining of abdominal bloating and distention as well as constipation. No additional complaints at this time, specifically denies fever/chills/cough/abdominal pain/nausea/vomiting/diarrhea. No concerns for exposure to COVID-19. On arrival to the ER he was found to have slightly elevated body temperature at 37.8, regular tachycardia at 105bpm, no respiratory distress, adequate oxyge [place] on room air. Laboratory workup revealed neutrophil predominant mild leukocytosis with WBC=12 and elevated D-dimer at 1130. CTA revealed subsegmental PE in the left lower lobe pulmonary infarct with small pulmonary infarct. ER Course: Morphine 4mg IV, Zofran 4mg IV Allergies Allergy/AdvReac Type Severity Reaction Status Date / Time rofecoxib AdvReac Unknown upset Verified 12/04/16 16:00 stomach Home Medications Home Medications Medication Instructions Recorded Confirmed Type lithium carbonate 300 mg PO DAILY 01/22/20 01/22/20 History lithium carbonate 600 mg PO HS 01/22/20 01/22/20 History mirtazapine 30 mg PO HS 01/22/20 01/22/20 History omeprazole 20 mg PO BID 01/22/20 01/22/20 History risperidone [Risperdal] 2 mg PO HS 01/22/20 01/22/20 History Past Med/Surg History Medical History (Updated 01/22/20 @ 21:39 by Dorothea Gómez DO) Bipolar 1 disorder Depression History of small bowel obstruction Surgical History (Updated 01/22/20 @ 21:27 by Dorothea Gómez DO) Hx of appendectomy Family History (Updated 01/22/20 @ 21:28 by Dorothea Gómez DO) Other Diabetes Heart disease Social History (Updated 01/22/20 @ 21:28 by Dorothea Gómez DO) Smoking Status: Former smoker Hx Alcohol Use: No Hx Substance Use: No Preferred Language: Lithuanian Current Living Situation: Other current occupation: Incarcerated Feels Safe at Home: Yes Review of Systems Review of Systems: All systems reviewed & are unremarkable except as noted in HPI & below Physical Exam Physical Exam: General: patient resting comfortably, NAD, non-toxic in appearance, AA&O x 4 Skin: warm, dry, intact, no rashes or lesions, small abrasion on LLE HEENT: NC/AT, PERRL, EOMI, anicteric sclera, conjunctiva without injection, external ear normal to inspection and nontender, nares patent, moist mucus membranes, dentition intact, no oropharyngeal lesions, neck supple, trachea midline, no LAD, no thyromegaly, no JVD Heart: +S1/S2, regular, tachycardic, no m/r/g Lungs: equal air entry bilaterally, no rales/rhonchi/wheezes, discomfort elicited with deep breathing Abd: +BS hypoactive, soft, NT, mildly distended and tympanic to percussion, no masses/organomegaly/ascites Ext: warm, 2+ pulses in UE/LE bilaterally, no clubbing/cyanosis or edema Neuro: nonfocal, patient AA&O x 4, speech intact, no facial droop, moving all extremities on command with equal strength 5/5 Results & Data Results & Data ([facility]) Vital Signs (Past 12 Hours) Vital Signs Temp Pulse Resp BP Pulse Ox 01/22/20 20:29 104 H 22 140/85 97 01/22/20 20:00 101 H 23 134/71 96 01/22/20 19:30 105 H 24 140/81 95 01/22/20 19:17 37.8 C H 18 142/78 H 99 Laboratory Results Lab Results 01/22/20 01/22/20 01/22/20 Range/Units 19:10 19:10 19:10 WBC 12.00 H (4.8-10.8) K/uL RBC 5.06 (4.7-6.1) M/uL Hgb 15.2 (14.0-18.0) g/dL Hct 45.6 (42-52) % MCV 90.1 (80-100) fL MCH 30.0 (25-34) pg MCHC 33.3 (32-36) g/dL RDW Std Deviation 41.4 (36.4-46.3) fL RDW Coeff of James 12.6 (11.5-14.5) % Plt Count 245 (130-400) K/uL MPV 10.6 H (7.4-10.4) fL Immature Gran % (Auto) 0.2 % Neut % (Auto) 69.5 % Lymph % (Auto) 17.1 % [place] % (Auto) 11.3 % Eos % (Auto) 1.6 % Baso % (Auto) 0.3 % Neut # (Auto) 8.36 H (1.4-6.5) K/uL Lymph # (Auto) 2.05 (1.2-3.4) K/uL [place] # (Auto) 1.35 H (0.11-0.59) K/uL Eos # (Auto) 0.19 (0-0.5) K/uL Baso # (Auto) 0.03 (0-0.2) K/uL Immature Gran # (Auto) 0.02 (0.00-0.02) K/uL PT (9.0-12.0) Seconds INR (0.9-1.1) APTT (21.0-31.0) Seconds PTT Ratio D-Dimer Cancelled Sodium 137 (136-145) mmol/L Potassium 4.0 (3.5-5.1) mmol/L Chloride 108 H (98-107) mmol/L Carbon Dioxide 22 (21-32) mmol/L Anion Gap 8.0 (3-11) BUN 13 (7-18) mg/dl Creatinine 1.30 (0.6-1.4) mg/dl Est Cr Clr Drug Dosing 76.0 ml/min Est GFR ( Amer) 72.2 Est GFR (Non-Af Amer) 62.3 BUN/Creatinine Ratio 9.7 L (10-20) Glucose 108 H (70-99) mg/dl Calcium 8.9 (8.5-10.1) mg/dl Total Bilirubin 0.8 (0.2-1) mg/dl AST 28 (15-37) U/L ALT 50 (12-78) U/L Alkaline Phosphatase 84 (45-117) U/L Troponin I < 0.015 (0-0.045) ng/ml Total Protein 8.1 (6.4-8.2) gm/dl Albumin 4.2 (3.4-5.0) gm/dl Globulin 3.9 (2.5-4.0) gm/dl Albumin/Globulin Ratio 1.1 (0.9-2) Lipase 94 (73-393) U/L // Range/Units 19:10 WBC (4.8-10.8) K/uL RBC (4.7-6.1) M/uL Hgb (14.0-18.0) g/dL Hct (42-52) % MCV (80-100) fL MCH (25-34) pg MCHC (32-36) g/dL RDW Std Deviation (36.4-46.3) fL RDW Coeff of James (11.5-14.5) % Plt Count (130-400) K/uL MPV (7.4-10.4) fL Immature Gran % (Auto) % Neut % (Auto) % Lymph % (Auto) % [place] % (Auto) % Eos % (Auto) % Baso % (Auto) % Neut # (Auto) (1.4-6.5) K/uL Lymph # (Auto) (1.2-3.4) K/uL [place] # (Auto) (0.11-0.59) K/uL Eos # (Auto) (0-0.5) K/uL Baso # (Auto) (0-0.2) K/uL Immature Gran # (Auto) (0.00-0.02) K/uL PT 10.7 (9.0-12.0) Seconds INR 1.0 (0.9-1.1) APTT 26.0 (21.0-31.0) Seconds PTT Ratio 0.9 D-Dimer 1130 H* Sodium (136-145) mmol/L Potassium (3.5-5.1) mmol/L Chloride (98-107) mmol/L Carbon Dioxide (21-32) mmol/L Anion Gap (3-11) BUN (7-18) mg/dl Creatinine (0.6-1.4) mg/dl Est Cr Clr Drug Dosing ml/min Est GFR ( Amer) Est GFR (Non-Af Amer) BUN/Creatinine Ratio (10-20) Glucose (70-99) mg/dl Calcium (8.5-10.1) mg/dl Total Bilirubin (0.2-1) mg/dl AST (15-37) U/L ALT (12-78) U/L Alkaline Phosphatase (45-117) U/L Troponin I (0-0.045) ng/ml Total Protein (6.4-8.2) gm/dl Albumin (3.4-5.0) gm/dl Globulin (2.5-4.0) gm/dl Albumin/Globulin Ratio (0.9-2) Lipase (73-393) U/L Diagnostic Findings CT ANGIOGRAM OF THE CHEST CLINICAL HISTORY: Atypical left-sided chest pain. COMPARISON STUDY: Chest x-ray dated 01/22/2020. Chest CT dated 12/04/2016. TECHNIQUE: Following the IV administration of 94 cc of Optiray 320, CT angiogram of the chest was performed from the upper abdomen to the thoracic inlet utilizing the pulmonary embolus protocol. Images are reviewed in the axial, sagittal, and coronal planes. 3-D MIPS images are created and assessed. IV contrast was administered without complication. A dose lowering technique was utilized adhering to the principles of ALARA. The examination is degraded by suboptimal contrast opacification of the pulmonary arteries CT DOSE: 507.02 mGy.cm FINDINGS: Thyroid: Imaged portions of the thyroid gland are normal in size and attenuation. Thoracic aorta: The thoracic aorta is normal in caliber and demonstrates standard 3-vessel arch anatomy. No dissection is seen. Pulmonary vasculature: The pulmonary trunk is normal in caliber. There are no filling defects identified in main, lobar, or segmental pulmonary branches to suggest pulmonary embolus. A filling defect is suggested within a subsegmental branch of the left lower lobe pulmonary artery on image #92. Heart: The heart is normal in size and without pericardial effusion. Lungs and pleural spaces: Evaluation of the lung parenchyma is degraded by motion artifact. There is trace left pleural effusion. There is a small focus of subpleural consolidation identified in the anterior left lower lobe on image #76. The trachea and central airways are clear. A 3 mm pulmonary nodule in the lingula seen on image #108. There are least 3 small pulmonary pleural-based nodules in the right middle lobe measuring up to 3 mm seen on image #81, #84, and #105. These are unchanged dating back to 2017 and of doubtful significance. Scattered calcified granulomas are observed. Mediastinum: There is no mediastinal lymphadenopathy. Peace: Clear. Axillae: There is no axillary lymphadenopathy. Upper abdomen: There is a small hiatal hernia. The liver is steatotic. Skeletal structures: No lytic or blastic bony lesions are seen. IMPRESSION: 1. The examination is degraded by suboptimal contrast opacification of the pulmonary arteries. 2. There is no evidence of central pulmonary embolus within the main, lobar, or proximal segmental pulmonary arteries. 3. A subsegmental pulmonary embolus is suspected within a branch of the left lower lobe pulmonary artery. This leads to a small focus of subpleural consolidation which likely represents a tiny pulmonary infarct. 4. There is trace left pleural effusion. 5. Hepatic steatosis. 6. Additional findings as above. ACT 112: Negative or not required by law. Electronically signed by: Jeyson Hammer M.D. 01/22/2020 8:39 PM Dictated: 01/22/202027 Transcribed: 01/22/202027 ------ AP CHEST WITH ABDOMINAL SERIES CLINICAL HISTORY: Abdominal distention. FINDINGS: An AP upright chest radiograph is compared to chest x-ray and chest CT dated 12/04/2016. The examination is degraded by patient rotation. The cardio mediastinal silhouette is unremarkable. There are low lung volumes with bibasilar atelectasis. Chronic interstitial thickening is similar to previous. No airspace consolidation or pleural effusion is identified. No pneumothorax is seen. The bony thorax is grossly intact. Supine and erect abdominal radiographs are compared to study dated 10/04/2011 and correlated with abdominal CT dated 04/13/2011. There is a nonobstructed abdominal bowel gas pattern. Fecal retention is noted in the right colon. No evidence of intraperitoneal free air is seen. There are no abnormal abdominal calcifications. Small phleboliths are observed in the pelvis. The lumbosacral spine and bony pelvis appear intact. IMPRESSION: 1. No active disease in the chest. 2. Nonobstructed abdominal bowel gas pattern. ACT 112: Negative or not required by law. Electronically signed by: Jeyson Hammer M.D. 01/22/2020 7:49 PM Dictated: 01/22/201946 Transcribed: 01/22/201946 ECG Additional Comments: Study shows ST at 122, normal axis, SE=590, QRS=74, BDd=100, no acute ischemic changes Code Status & VTE Plan Code Status FULL VTE Prophylaxis Plan VTE Prophylaxis will be ordered: Yes PG Care Time/CCT Total # of Minutes Spent Total Time Spent with Patient: Total time spent is greater than 50% in coordination of care (as documented) at patient's floor/unit and/or counseling patient: Coding Level of Care Code 58176 OBS Care - Level 3 Diagnoses Embolism, pulmonary with infarction I26.99 Bipolar 1 disorder F31.9 Depression F32.9 Depression Type: major depressive disorder Major depression recurrence: unspecified whether recurrent Active/Remission status: remission status unspecified Constipation K59.00 Constipation type: unspecified constipation type (1) Depression Depression Type: major depressive disorder Major depression recurrence: unspecified whether recurrent Active/Remission status: remission status unspecified Qualified Code(s): F32.9 - Major depressive disorder, single episode, unspecified (2) Constipation Constipation type: unspecified constipation type Qualified Code(s): K59.00 - Constipation, unspecified
[2020-01-22] MEDS ORDERED: HEPARIN SODIUM/DEXTROSE 25,000 UNITS/500 ML BAG IV SCH (21:45)
[2020-01-22] MEDS ORDERED: POLYETHYLENE (MIRALAX) 17 GM PACK PO PRN (22:00)
[2020-01-22] MEDS ORDERED: ONDANSETRON INJ 2 MG/ML 2 ML VIAL IV PRN (22:00)
[2020-01-22] MEDS ORDERED: DOCUSATE SODIUM 100 MG CAP PO PRN (22:00)
[2020-01-22] MEDS ORDERED: ACETAMINOPHEN 325 MG TAB PO PRN (22:00)
[2020-01-22] MEDS ORDERED: HEPARIN IV BOLUS 7,000 UNITS in SYRINGE 0 ML IV ONE (22:30)
[2020-01-22] MEDS ORDERED: HEPARIN IV BOLUS 6,000 UNITS in SYRINGE 0 ML IV ONE (22:45)
[2020-01-22] MEDS: TRAMADOL HCL 50 MG TABLET PO PRN (22:52)
[2020-01-22] MEDS: HEPARIN SODIUM/DEXTROSE 25,000 UNITS/500 ML BAG IV SCH (22:54)
[2020-01-23 05:46] LABS: Basophils # (auto) 0.04 K/uL (0-0.2); Basophils % (auto) 0.4 %; Immature Granulocytes # (auto) 0.02 K/uL (0.00-0.02); Immature Granulocytes % (auto) 0.2 %; Lymphocytes # (auto) 2.47 K/uL (1.2-3.4); Lymphocytes % (auto) 24.2 %; Mean Corpuscular Hemoglobin 29.6 pg (25-34); Mean Corpuscular Hgb Conc 32.6 g/dL (32-36); Mean Corpuscular Volume 90.9 fL (80-100); Mean Platelet Volume 10.4 fL (7.4-10.4); Monocytes # (auto) 1.34 K/uL (0.11-0.59); Monocytes % (auto) 13.1 %; Neutrophils # (auto) 6.14 K/uL (1.4-6.5); Neutrophils % (auto) 60.1 %; Platelet Count 220 K/uL (130-400); RDW Coefficient of Variation 12.6 % (11.5-14.5); RDW Standard Deviation 42.3 fL (36.4-46.3); Red Blood Count 4.73 M/uL (4.7-6.1); White Blood Count 10.21 K/uL (4.8-10.8)
[2020-01-23 06:10] LABS: Partial Thromboplastin Ratio 2.2
[2020-01-23 06:13] LABS: BUN Creatinine Ratio 12.2 (10-20); Calcium 8.5 mg/dl (8.5-10.1); Creatinine Clr Calc Pharmacy 81.5 ml/min; Est GFR (African American) 82.9; Est GFR (Non-African American) 71.5; Potassium 3.8 mmol/L (3.5-5.1)
[2020-01-23 06:18] LABS: Partial Thromboplastin Time 62.5 Seconds (21.0-31.0)
[2020-01-23] MEDS: LITHIUM CARBONATE SLOW REL 300 MG TAB PO SCH (07:21)
[2020-01-23] MEDS: TRAMADOL HCL 50 MG TABLET PO PRN ×3 (07:21→18:48)
[2020-01-23] MEDS: PANTOprazole 40 MG TAB PO SCH ×2 (07:22→20:30)
--- NOTE | 2020-01-23 10:19 | Electrocardiogram Report ---
Test Reason : Blood Pressure : / mmHG Vent. Rate : 122 BPM Atrial Rate : 122 BPM P-R Int : 126 ms QRS Dur : 074 ms QT Int : 306 ms P-R-T Axes : 039 056 057 degrees QTc Int : 436 ms Sinus tachycardia Otherwise normal ECG When compared with ECG of 04-DEC-2016 15:19, No significant change was found Confirmed by Pa Wright ([id number]) on 01/23/2020 10:18:58 AM Referred By: [facility] Confirmed By:Pa Wright
[2020-01-23] MEDS: HEPARIN SODIUM/DEXTROSE 25,000 UNITS/500 ML BAG IV SCH (16:00)
[2020-01-23] MEDS ORDERED: LITHIUM CARBONATE SLOW REL 300 MG TAB PO SCH (21:00)
[2020-01-23] MEDS ORDERED: risperiDONE 2 MG TABLET PO SCH (21:00)
[2020-01-23] MEDS ORDERED: MIRTAZAPINE TAB 15 MG TAB PO SCH (21:00)
--- NOTE | 2020-01-23 22:02 | Hospitalist Progress Note ---
Date of Service January 23, 2020 Assessment & Plan (1) Embolism, pulmonary with infarction: 54yo C male with history of Bipolar/Depression presenting from [facility] with acute onset of left sided pleuritic chest pain. Found to have a subsegmental PE of left lower lobe pulmonary artery with associated small pulmonary infarct. No clear risk factors identified. Patient currently afebrile, regular tachycardia at 104bpm, blood pressure is stable. No respiratory distress, adequate oxygenation on room air. -Admit to medical floor with telemetry monitoring -Heparin bolus + gtt for anticoagulation -Initiate NOAC on Friday - anticoagulation for at least 3 months in unprovoked PE -Patient should complete age appropriate cancer screenings to include colonoscopy -Tramadol as needed for pain (2) Bipolar 1 disorder: Stable mood and affect. Normal speech. -Continue home medication regimen to include [place] 300mg po daily and 600mg po qHS -Remeron 30mg po qHS -Risperidone 2mg po qHS (3) Depression: As above -Continue home Psychiatric medications (4) Constipation: Patient reports some abdominal bloating and distention as well as constipation. He has history of prior abdominal surgery with SBO. Chest/Abd X- ray with nonobstructed abdominal bowel gas pattern. -Miralax and colace PRN F/E/N - Heplock. Electrolytes WNL. Regular diet as tolerated. Ppx - Heparin gtt as above. Continue home Omeprazole 20mg po BID Code - Full per discussion with patient Dispo - Observation to medical floor with telemetry. Anticipate discharge on Friday. Admission and Anticipated Discharge Date Admission Date: January 22, 2020 Subjective 54 yo male reports feeling well except for pleuritic chest pain. Patient has no new complaints at this time. Review of Systems Review of Systems: All systems reviewed & are unremarkable except as noted in HPI & below Physical Exam Physical Exam: General: patient resting comfortably, NAD, non-toxic in appearance, AA&O x 4 Skin: warm, dry, intact, no rashes or lesions, small abrasion on LLE HEENT: NC/AT, PERRL, EOMI, anicteric sclera, conjunctiva without injection, external ear normal to inspection and nontender, nares patent, moist mucus membranes, dentition intact, no oropharyngeal lesions, neck supple, trachea midline, no LAD, no thyromegaly, no JVD Heart: +S1/S2, regular, tachycardic, no m/r/g Lungs: equal air entry bilaterally, no rales/rhonchi/wheezes, discomfort elicited with deep breathing Abd: +BS hypoactive, soft, NT, mildly distended and tympanic to percussion, no masses/organomegaly/ascites Ext: warm, 2+ pulses in UE/LE bilaterally, no clubbing/cyanosis or edema Neuro: nonfocal, patient AA&O x 4, speech intact, no facial droop, moving all extremities on command with equal strength 5/5 Results & Data Results & Data ([facility]) Vital Signs (Past 12 Hours) Vital Signs Temp Pulse Pulse Resp BP Pulse Ox 01/23/20 19:00 36.9 C 72 18 130/81 95 01/23/20 15:00 36.9 C 77 18 127/85 96 01/23/20 13:00 36.8 C 80 18 144/87 H 95 PG Care Time/CCT Total # of Minutes Spent Total Time Spent with Patient: Total time spent is greater than 50% in coordination of care (as documented) at patient's floor/unit and/or counseling patient: Coding Level of Care Code 39536 Subseq Obs Care Lvl 3 Diagnoses Embolism, pulmonary with infarction I26.99 Bipolar 1 disorder F31.9 Depression F32.9 Active/Remission status: remission status unspecified Depression Type: major depressive disorder Major depression recurrence: unspecified whether recurrent Constipation K59.00 Constipation type: unspecified constipation type Time Spent (min) 35 (1) Depression Active/Remission status: remission status unspecified Depression Type: major depressive disorder Major depression recurrence: unspecified whether recurrent Qualified Code(s): F32.9 - Major depressive disorder, single episode, unspecified (2) Constipation Constipation type: unspecified constipation type Qualified Code(s): K59.00 - Constipation, unspecified
[2020-01-23 23:00] LABS: Partial Thromboplastin Ratio 2.2
[2020-01-23 23:05] LABS: Partial Thromboplastin Time 60.8 Seconds (21.0-31.0)
[2020-01-24 07:38] LABS: Partial Thromboplastin Time 56.3 Seconds (21.0-31.0)
[2020-01-24] MEDS: TRAMADOL HCL 50 MG TABLET PO PRN (08:43)
[2020-01-24] MEDS: PANTOprazole 40 MG TAB PO SCH (08:44)
[2020-01-24] MEDS: LITHIUM CARBONATE SLOW REL 300 MG TAB PO SCH (08:44)
[2020-01-24] MEDS: HEPARIN SODIUM/DEXTROSE 25,000 UNITS/500 ML BAG IV SCH (08:50)
[2020-01-24] MEDS ORDERED: APIXABAN 5 MG TABLET PO SCH (10:00)
[2020-01-24 12:40] LABS: Hematocrit (blood only) 43.6 % (42-52); Hemoglobin 14.3 g/dL (14.0-18.0); Mean Corpuscular Hemoglobin 29.9 pg (25-34); Mean Corpuscular Hgb Conc 32.8 g/dL (32-36); Mean Platelet Volume 11.2 fL (7.4-10.4); Platelet Count 226 K/uL (130-400); RDW Coefficient of Variation 12.6 % (11.5-14.5); RDW Standard Deviation 42.6 fL (36.4-46.3); Red Blood Count 4.79 M/uL (4.7-6.1); White Blood Count 8.24 K/uL (4.8-10.8)
--- NOTE | 2020-01-24 12:52 | XRay Report ---
XR chest 2V PA/lateral CLINICAL HISTORY: pulmonary infarct COMPARISON STUDY: 01/22/2020, CT scan dated 01/22/2020 FINDINGS: The heart is the upper limits of normal in size. There is no failure. There are no signific ant pleural effusions. There are left lower lobe airspace opacities, likely atelectatic, or secondary to the small pulmonary infarct described on the CT scan. IMPRESSION: 1. Minor left basilar airspace opacities, likely atelectatic or secondary to the small pulmonary infa rct described on the recent CT scan. ACT 112: Negative or not required by law. Electronically signed by: Cirilo Nino M.D. 01/24/2020 12:51 PM
[2020-01-24 14:54] LABS: Appearance Urine Clear (Clear); Bacteria Urine Automated Negative (Negative); Bilirubin Urine Negative (Negative); Blood Urine 2+ (Negative); Cast Urine Automated 0 /lpf (0-5); Color Urine Yellow; Glucose Urine UA Negative (Negative); Ketones Urine Negative (Negative); Leukocyte Esterase Urine Negative (Negative); Nitrite Urine Negative (Negative); Protein Urine Negative (Negative); Specific Gravity Urine 1.012 (1.000-1.030); Urobilinogen Urine Negative (Negative)
--- NOTE | 2020-01-25 09:35 | Discharge Summary ---
Date of Service January 24, 2020 Admission HPI Per Admitting Provider Alvaro Brock is a 54yo male inmate from [facility] with history of Bipolar/Depression presenting with left sided chest pain. Patient states that he was getting ready for work this afternoon around 12:00 when he had acute onset of left sided chest pain. Pain stabbing and squeezing in nature, radiation down his left side and associated with sweating. Pain is pleuritic, non-exertional and non-positional. Patient with no complaint of leg swelling but he did have some mild discomfort in his legs earlier. No trauma/immobililty. No prior history of VTE but he thinks some of his family members have had blood clots in the past. He has never had a colonoscopy before. He is also complaining of abdominal bloating and distention as well as constipation. No additional complaints at this time, specifically denies fever/chills/cough/abdominal pain/nausea/vomiting/diarrhea. No concerns for exposure to COVID-19. On arrival to the ER he was found to have slightly elevated body temperature at 37.8, regular tachycardia at 105bpm, no respiratory distress, adequate oxygenation on room air. Laboratory workup revealed neutrophil predominant mild leukocytosis with WBC=12 and elevated D-dimer at 1130. CTA revealed subsegmental PE in the left lower lobe pulmonary infarct with small pulmonary infarct. ER Course: Morphine 4mg IV, Zofran 4mg IV Principal Diagnosis Acute pulmonary emboli Discharge Exam General: patient resting comfortably, NAD, non-toxic in appearance, AA&O x 4 Skin: warm, dry, intact, no rashes or lesions, small abrasion on LLE HEENT: NC/AT, PERRL, EOMI, anicteric sclera, conjunctiva without injection, external ear normal to inspection and nontender, nares patent, moist mucus m embranes, dentition intact, no oropharyngeal lesions, neck supple, trachea midline, no LAD, no thyromegaly, no JVD Heart: +S1/S2, regular, tachycardic, no m/r/g Lungs: equal air entry bilaterally, no rales/rhonchi/wheezes, discomfort elicited with deep breathing Abd: +BS hypoactive, soft, NT, mildly distended and tympanic to percussion, no masses/organomegaly/ascites Ext: warm, 2+ pulses in UE/LE bilaterally, no clubbing/cyanosis or edema Neuro: nonfocal, patient AA&O x 4, speech intact, no facial droop, moving all extremities on command with equal strength 5/5 Discharge Data Allergies Allergy/AdvReac Type Severity Reaction Status Date / Time rofecoxib AdvReac Unknown upset Verified 12/04/16 16:00 stomach Consultations 01/22/20 20:49 ED Decision to Admit Stat Ordered Studies 01/22/20 20:06 CT angio chest PE protocol Stat Hospital Course (1) Embolism, pulmonary with infarction: 54yo C male with history of Bipolar/Depression presenting from [facility] with acute onset of left sided pleuritic chest pain. Found to have a subsegmental PE of left lower lobe pulmonary artery with associated small pulmonary infarct. No clear risk factors identified. Patient currently afebrile, regular tachycardia at 104bpm, blood pressure is stable. No respiratory distress, adequate oxygenation on room air. -Admit to medical floor with telemetry monitoring -Heparin bolus + gtt for anticoagulation -Eliquis will be used at discharge, patient will need to be on this for about 6 months. Discussed risk of blood thinning medicine. Patient will need to be followed up by Hem/onc to confirm duration of anticoagulant. Patient also had hematuria and this may have been secondary to heparin. However will also recommend followup with Urology for bladder cancer screening -Patient should complete age appropriate cancer screenings to include colonoscopy -Tramadol as needed for pain (2) Bipolar 1 disorder: Stable mood and affect. Normal speech. -Continue home medication regimen to include [place] 300mg po daily and 600mg po qHS -Remeron 30mg po qHS -Risperidone 2mg po qHS (3) Depression: As above -Continue home Psychiatric medications (4) Constipation: Patient reports some abdominal bloating and distention as well as constipation. He has history of prior abdominal surgery with SBO. Chest/Abd X- ray with nonobstructed abdominal bowel gas pattern. -Miralax and colace PRN F/E/N - [place]ock. Electrolytes WNL. Regular diet as tolerated. Ppx - Heparin gtt as above. Continue home Omeprazole 20mg po BID Code - Full per discussion with patient Total Time Total Time Spent Total Time Spent (In Minutes): 32 Total Time Includes: Examination of the Patient, Discharge Planning and Medication Reconciliation Discharge Plan Discharge Items [facility] Disposition: [facility] Reason For Visit: ADMISSION Discharge Diagnosis: Pulmonary emboli Activity: Resume your previous activity Non-emergency contact: Primary Care Provider Call non-emergency contact if: you have any medication questions Follow-up/Referrals: Mike GALLARDO [Primary Care Provider] - Diet: Regular Addtl Attending Provider Instructions: You have been hospitalized for an acute medical problem. During your stay at [facility], we have made an effort to correct the problem that brought you to the hospital while keeping you as comfortable as possible. Medications were used to bring your condition under control and your discharge instructions will include directions for any medications you should take after leaving the hospital. Please make sure you see your Primary Care Provider as part of your follow up plan. You will need 6- 12 months of anticoagulation. Will recommend followup with Hem/Onc or PCP during this time. Will recommend Urology followup in 1-2 months for hematuria eval. Pending Studies at Discharge: No Stand-Alone Forms: My [facility], Smoking Cessation Skilled Items Patient informed of condition?: Yes DNR: No Discharge Level of Care: Other Communicable Disease: No Discharge Prognosis: Stable Lines: None Urinary Catheter: No Medications and DC Order Prescriptions: New Eliquis 5 mg Tablet See Rx Instructions .ROUTE .COMPLEX Qty: 60 RF: 0 tramadol 50 mg Tablet 50 mg PO Q4H PRN (Reason: severe pain) Qty: 30 RF: 0 Continued lithium carbonate 300 mg Tablet Extended Release 300 mg PO DAILY RF: 0 lithium carbonate 300 mg Tablet Extended Release 600 mg PO HS RF: 0 risperidone [Risperdal] 2 mg Tablet 2 mg PO HS RF: 0 mirtazapine 30 mg Tablet 30 mg PO HS RF: 0 omeprazole 20 mg Tablet,Delayed Release (Dr/Ec) 20 mg PO BID RF: 0 Krames/Other Patient Handouts: Pulmonary Embolism, Apixaban oral tablets Admission Data Admit Date/Time: 01/22/20 21:17 Attending Provider: Edis Rodas Admit Provider: Dorothea Gómez Primary Care Provider: Mike GALLARDO Other Providers: Dorothea Gómez Other Interventions: Discharge Summary Assessment (RN) Last Done: 01/24/20 16:42 Coding Level of Care Code 57474 OBS Care - Discharge Diagnoses Embolism, pulmonary with infarction I26.99 Bipolar 1 disorder F31.9 Depression F32.9 Depression Type: major depressive disorder Major depression recurrence: unspecified whether recurrent Active/Remission status: remission status unspecified Constipation K59.00 Constipation type: unspecified constipation type
== END 2020-01-24 19:29 ==
LOC: 2N 19:01 → ED 19:01 → SUATTDRO 21:17 → 2N 21:32